=== PATIENT | female | born 1995 | race Caucasian/White ===

== ENCOUNTER 2018-03-30 14:06 | Emergency (ER) | payer BC, OTHER ==
[2018-03-30 14:27] VITALS: TEMP 98.6
[2018-03-30] MEDS ORDERED: SODIUM CHLORIDE 0.9% 1,000 ML IV STA (15:55)
--- NOTE | 2018-03-30 15:56 | ED ---
General Adult HPI - General Chief complaint: Arrhythmia/Palpitations Stated complaint: Palpitations Time Seen by Provider: 03/30/18 15:42 Source: patient, family, RN notes reviewed Mode of arrival: wheelchair Limitations: no limitations - History of Present Illness Initial comments: Patient is a pleasant 22-year-old female presenting to the emergency department palpitations. Onset of symptoms was around 9:30 or 10 this morning. No symptoms lasted around 10 minutes and then resolved. Heart rate was checked at 99. Patient felt it was skipping. Patient also felt that it was beating hard. No history of similar symptoms previously. Patient has not had any symptoms since that time. No chest pain. No dyspnea. Patient is approximately 34 weeks . No vaginal bleeding or pelvic pain. - Related Data Home Medications Medication Instructions Recorded Confirmed Pnv No.95/Ferrous Fum/Folic AC 1 tab PO HS 03/30/18 03/30/18 [ Multivitamin Tablet] Allergies Allergy/AdvReac Type Severity Reaction Status Date / Time No Known Allergies Allergy Verified 03/30/18 15:45 Review of Systems ROS Statement: Those systems with pertinent positive or pertinent negative responses have been documented in the HPI. ROS Other: All systems not noted in ROS Statement are negative. Constitutional: Denies: fever Eyes: Denies: eye pain ENT: Denies: ear pain Respiratory: Denies: cough, dyspnea Cardiovascular: Reports: palpitations. Denies: chest pain Endocrine: Denies: fatigue Gastrointestinal: Denies: abdominal pain, vomiting Genitourinary: Denies: dysuria Musculoskeletal: Denies: back pain Skin: Denies: rash Neurological: Denies: weakness Past Medical History Past Medical History: No Reported History History of Any Multi-Drug Resistant Organisms: None Reported Past Surgical History: No Surgical Hx Reported Past Psychological History: No Psychological Hx Reported Smoking Status: Never smoker Past Alcohol Use History: None Reported Past Drug Use History: None Reported General Exam Limitations: no limitations General appearance: alert, in no apparent distress Head exam: Present: atraumatic Eye exam: Present: normal appearance, PERRL ENT exam: Present: normal oropharynx Neck exam: Present: normal inspection Respiratory exam: Present: normal lung sounds bilaterally Cardiovascular Exam: Present: regular rate, normal rhythm, normal heart sounds Expanded Peripheral pulses: 2+: Radial (R), Radial (L), Dorsalis Pedis (R), Dorsalis Pedis (L) GI/Abdominal exam: Present: soft. Absent: tenderness Extremities exam: Present: normal inspection. Absent: pedal edema, calf tenderness Neurological exam: Present: alert Psychiatric exam: Present: normal affect, normal mood Skin exam: Present: normal color Course Vital Signs 03/30/18 14:25 Temperature 98.6 F Pulse Rate 86 Respiratory 20 Rate Blood Pressure 128/71 O2 Sat by Pulse 97 Oximetry EKG Findings - EKG Comments: EKG Findings:: Normal sinus rhythm at 83. WA 144. QRS 80. QT 358. QTC 420. Normal axis. Normal QRS. No acute ST change. Medical Decision Making - Medical Decision Making Patient reevaluated and resting comfortably in bed. Patient updated on results and need for follow-up as well as need to have upstairs for monitoring. Patient is aware she will need further evaluation including monitor and echo. - Lab Data Result diagrams: 03/30/18 16:11 03/30/18 16:11 Lab Results 03/30/18 03/30/18 03/30/18 Range/Units 16:11 16:11 16:11 WBC 12.4 H (4.0-11.0) k/uL RBC 4.24 (3.80-5.40) m/uL Hgb 13.3 (11.4-16.0) gm/dL Hct 39.9 (34.0-46.0) % MCV 94.0 (80.0-100.0) fL MCH 31.4 (25.0-35.0) pg MCHC 33.4 (31.0-37.0) g/dL RDW 13.6 (11.5-15.5) % Plt Count 175 (150-450) k/uL Neutrophils % 83 % Lymphocytes % 12 % Monocytes % 3 % Eosinophils % 1 % Basophils % 0 % Neutrophils # 10.3 H (1.3-7.7) k/uL Lymphocytes # 1.4 (1.0-4.8) k/uL Monocytes # 0.4 (0-1.0) k/uL Eosinophils # 0.1 (0-0.7) k/uL Basophils # 0.0 (0-0.2) k/uL PT (9.0-12.0) sec INR (<1.2) APTT (22.0-30.0) sec Sodium 139 (137-145) mmol/L Potassium 4.3 (3.5-5.1) mmol/L Chloride 110 H (98-107) mmol/L Carbon Dioxide 22 (22-30) mmol/L Anion Gap 7 mmol/L BUN 7 (7-17) mg/dL Creatinine 0.50 L (0.52-1.04) mg/dL Est GFR (CKD-EPI)AfAm >90 (>60 ml/min/1.73 sqM) Est GFR (CKD-EPI)NonAf >90 (>60 ml/min/1.73 sqM) Glucose 80 (74-99) mg/dL Calcium 8.9 (8.4-10.2) mg/dL Magnesium 1.9 (1.6-2.3) mg/dL Total Bilirubin 0.2 (0.2-1.3) mg/dL AST 29 (14-36) U/L ALT 29 (9-52) U/L Alkaline Phosphatase 149 H (38-126) U/L Total Creatine Kinase 62 (30-135) U/L CK-MB (CK-2) 0.9 (0.0-2.4) ng/mL CK-MB (CK-2) Rel Index 1.5 Troponin I <0.012 (0.000-0.034) ng/mL Total Protein 6.8 (6.3-8.2) g/dL Albumin 3.9 (3.5-5.0) g/dL TSH 1.540 (0.465-4.680) mIU/L Free T4 0.67 L (0.78-2.19) ng/dL Free T3 pg/mL 3.4 (2.8-5.3) pg/ml 03/30/18 Range/Units 16:11 WBC (4.0-11.0) k/uL RBC (3.80-5.40) m/uL Hgb (11.4-16.0) gm/dL Hct (34.0-46.0) % MCV (80.0-100.0) fL MCH (25.0-35.0) pg MCHC (31.0-37.0) g/dL RDW (11.5-15.5) % Plt Count (150-450) k/uL Neutrophils % % Lymphocytes % % Monocytes % % Eosinophils % % Basophils % % Neutrophils # (1.3-7.7) k/uL Lymphocytes # (1.0-4.8) k/uL Monocytes # (0-1.0) k/uL Eosinophils # (0-0.7) k/uL Basophils # (0-0.2) k/uL PT 9.3 (9.0-12.0) sec INR 0.9 (<1.2) APTT 23.9 (22.0-30.0) sec Sodium (137-145) mmol/L Potassium (3.5-5.1) mmol/L Chloride (98-107) mmol/L Carbon Dioxide (22-30) mmol/L Anion Gap mmol/L BUN (7-17) mg/dL Creatinine (0.52-1.04) mg/dL Est GFR (CKD-EPI)AfAm (>60 ml/min/1.73 sqM) Est GFR (CKD-EPI)NonAf (>60 ml/min/1.73 sqM) Glucose (74-99) mg/dL Calcium (8.4-10.2) mg/dL Magnesium (1.6-2.3) mg/dL Total Bilirubin (0.2-1.3) mg/dL AST (14-36) U/L ALT (9-52) U/L Alkaline Phosphatase (38-126) U/L Total Creatine Kinase (30-135) U/L CK-MB (CK-2) (0.0-2.4) ng/mL CK-MB (CK-2) Rel Index Troponin I (0.000-0.034) ng/mL Total Protein (6.3-8.2) g/dL Albumin (3.5-5.0) g/dL TSH (0.465-4.680) mIU/L Free T4 (0.78-2.19) ng/dL Free T3 pg/mL (2.8-5.3) pg/ml Disposition Clinical Impression: Palpitations Disposition: HOME SELF-CARE Condition: Stable Instructions: Palpitations (ED) Additional Instructions: Please follow-up with your CUSTOMER SECURITY CLERK and primary care physician in the next day or 2 for recheck. You will need further evaluation including echo and Holter monitor. Please head upstairs at this time for monitoring. Return for increased heart rate, chest pain, difficult to breathing, worsening or change in symptoms or other concerns. Is patient prescribed a controlled substance at d/c from ED?: No Referrals: Nitza Corral MD [Primary Care Provider] - 1-2 days Time of Disposition: 17:04
[2018-03-30 16:18] LABS: Basophils % (A) 0 %; Eosinophils # (A) 0.1 k/uL (0-0.7); Eosinophils % (A) 1 %; HCT 39.9 % (34.0-46.0); HGB 13.3 gm/dL (11.4-16.0); Lymphocytes # (A) 1.4 k/uL (1.0-4.8); Lymphocytes % (A) 12 %; MCH 31.4 pg (25.0-35.0); MCHC 33.4 g/dL (31.0-37.0); Mean Platelet Volume 6.7; Monocytes # (A) 0.4 k/uL (0-1.0); Monocytes % (A) 3 %; Neutrophils # (A) 10.3 k/uL (1.3-7.7); Neutrophils % (A) 83 %; Platelet Count 175 k/uL (150-450); RBC 4.24 m/uL (3.80-5.40); RDW 13.6 % (11.5-15.5); WBC 12.4 k/uL (4.0-11.0)
[2018-03-30 16:30] LABS: ALT 29 U/L (9-52); AST 29 U/L (14-36); Albumin 3.9 g/dL (3.5-5.0); Alkaline Phosphatase 149 U/L (38-126); Anion Gap 7 mmol/L; Blood Urea Nitrogen 7 mg/dL (7-17); Calcium 8.9 mg/dL (8.4-10.2); Carbon Dioxide 22 mmol/L (22-30); Chloride 110 mmol/L (98-107); Glucose 80 mg/dL (74-99); INR 0.9 (<1.2); Magnesium 1.9 mg/dL (1.6-2.3); Partial Thromboplastin Time 23.9 sec (22.0-30.0); Potassium 4.3 mmol/L (3.5-5.1); Prothrombin Time 9.3 sec (9.0-12.0); Sodium 139 mmol/L (137-145); Total Bilirubin 0.2 mg/dL (0.2-1.3); Total Protein 6.8 g/dL (6.3-8.2)
[2018-03-30 16:40] LABS: Creatine Kinase 62 U/L (30-135)
[2018-03-30 16:47] LABS: T4, Free (Free Thyroxine) 0.67 ng/dL (0.78-2.19)
[2018-03-30 16:51] LABS: Creatine Kinase MB 0.9 ng/mL (0.0-2.4); Troponin I <0.012 ng/mL (0.000-0.034)
[2018-03-30 17:11] VITALS: BP 119/56; PULSE 83; RESP 18
== END 2018-03-30 17:50 | disposition home or self-care (01) ==
LOC: EC 14:06
DX: O99.89 Other specified diseases and conditions complicating pregnancy, childbirth and the puerperium (principal); R00.2 Palpitations; Z3A.34 34 weeks gestation of pregnancy
CPT/HCPCS: 36415; 80053; 82550; 82553; 83735; 84439; 84443; 84481; 84484; 85025; 85610; 85730; 93005; 96360; 99285

== ENCOUNTER 2018-03-30 17:54 | Outpatient (CLI) | payer BC, OTHER ==
[2018-03-30 19:22] VITALS: BP 125/67; PULSE 83; RESP 18; TEMP 96.9
--- NOTE | 2018-04-20 11:42 | P.MSEPDOC ---
Presenting Problems - Arrival Data Date of Arrival on Unit: 03/30/18 Time of Arrival on Unit: 18:00 Mode of Transport: Wheelchair - Complaint OB-Reason for Admission/Chief Complaint: NST Comment: pt received from ER after being assessed for heart palpitations. Pt denies labor complaints Medical History - Information : 1 Para: 0 Term: 0 : 0 Abortions: Spontaneous or Elective: 0 Number of Living Children: 0 - Gestational Age Gestational Age by QIANA (wks/days): 33 Weeks and 6 Days Review of Systems - Review of Systems Constitutional: No problems Breast: No problems ENT: No problems Cardiovascular: No problems Respiratory: No problems Gastrointestinal: No problems Genitourinary: No problems Musculoskeletal: No problems Neurological: No problems Skin: No problems Vital Signs - Temperature Temperature: 96.9 F Temperature Source: Temporal Artery Scan - Pulse Right Sitting Brachial Pulse Rate: 83 Pulse Assessment Method: Automatic Cuff - Respirations Respiratory Rate: 18 Oxygen Delivery Method: Room Air O2 Sat by Pulse Oximetry: 97 - Blood Pressure Right Arm Sitting Blood Pressure: 125/67 Blood Pressure Mean: 86 Blood Pressure Source: Automatic Cuff Medical Screen Scoring (Pre) - Cervical Exam Dilation: Exam Deferred Effacement: Exam Deferred Membranes: Intact - Uterine Contractions Frequency: > 5 minutes apart = 1 Duration: N/A Intensity: N/A - Maternal Vital Signs Maternal Temperature: N/A Maternal Blood Pressure: N/A Signs of Preeclampsia: N/A Maternal Respirations: N/A - Pain Assessment Pain Scale Used: Numeric (1 - 10) Pain Intensity: 0 Pain Management Goal: 3 - Maternal Trauma Maternal Trauma: N/A - Assessment Baseline FHR: 125 Heart Rate - NICHD Category: Category I (Normal) = 0 NST: Reactive Position: N/A Station: N/A - Total Score Total Score (Pre): 1 - Level of Risk Level of Risk: Low (0-5) Physician Notification (Pre) - Physician Notified Physician Notified Date: 03/30/18 Physician Notified Time: 19:15 Physician/Practitioner Notifed:: Dr Mehta Spoke With: Dr Mehta New Order Received: Yes - Notification Comment Comment: discharge home. Call for appt to see in 1-2 days. Disposition - Disposition OB Disposition: Discharge to home Discharge Date: 03/30/18 Discharge Time: 19:15 I agree with the RN Medical Screening Exam: Yes Risk & Benefit of care provided described in d/c instruction: Yes Diagnosis: 33 WEEKS GESTATION OF
== END 2018-03-30 19:15 | disposition home or self-care (01) ==
LOC: FBPOP 17:54
PROVIDERS: ATTEND Obstetrics & Gynecology
DX: O26.893 Other specified pregnancy related conditions, third trimester (principal); R00.2 Palpitations; Z3A.33 33 weeks gestation of pregnancy
CPT/HCPCS: 59025; 99213

== ENCOUNTER 2018-05-18 15:46 | Inpatient (IN) | payer BC, OTHER ==
[2018-05-18] MEDS ORDERED: CARBOPROST TROMETHAMINE 250 MCG/ML 1 ML AMP IM PRN (17:05)
[2018-05-18] MEDS ORDERED: TERBUTALINE 1 MG/ML VIAL SQ PRN (17:05)
[2018-05-18] MEDS ORDERED: LIDOCAINE 0.5% (PF) 5 MG/ML (50 ML SDV) SQ PRN (17:05)
[2018-05-18] MEDS ORDERED: OXYTOCIN 10 UNIT/ML 1 ML VIAL IM PRN (17:05)
[2018-05-18] MEDS ORDERED: METHYLERGONOVINE 0.2 MG/ML 1 ML AMP IM PRN (17:05)
[2018-05-18 18:08] VITALS: BMI 36.8
[2018-05-18] MEDS: OXYTOCIN 20 UNITS/1000 ML NS 1,000 ML IV SCH (18:54)
[2018-05-18] MEDS: LACTATED RINGERS 1,000 ML IV SCH (18:54)
[2018-05-18 18:59] LABS: Basophils % (A) 0 %; Eosinophils # (A) 0.1 k/uL (0-0.7); Eosinophils % (A) 1 %; HCT 38.8 % (34.0-46.0); HGB 13.3 gm/dL (11.4-16.0); Lymphocytes # (A) 1.7 k/uL (1.0-4.8); Lymphocytes % (A) 13 %; MCH 32.4 pg (25.0-35.0); MCHC 34.2 g/dL (31.0-37.0); MCV 94.8 fL (80.0-100.0); Mean Platelet Volume 6.9; Monocytes # (A) 0.5 k/uL (0-1.0); Monocytes % (A) 4 %; Neutrophils # (A) 11.4 k/uL (1.3-7.7); Neutrophils % (A) 82 %; Platelet Count 171 k/uL (150-450); RBC 4.09 m/uL (3.80-5.40); RDW 13.4 % (11.5-15.5); WBC 13.9 k/uL (4.0-11.0)
[2018-05-19] MEDS: LACTATED RINGERS 1,000 ML IV SCH ×3 (03:38→08:01)
[2018-05-19] MEDS: OXYTOCIN 20 UNITS/1000 ML NS 1,000 ML IV SCH (05:22)
--- NOTE | 2018-05-19 07:42 | P.HPOB ---
History of Present Illness H&P Date: 05/19/18 Chief Complaint: Nonreassuring status, postdates This is a 22-year-old white female 1 para 0 EDC 05/12/2018 at 41 weeks gestation. Patient was seen in the office yesterday for her examination, NST was reactive but there was a deceleration into the 90s for approximate 20 seconds. She was subsequently sent to the hospital for further monitoring, where a second deceleration was appreciated. For that reason, she was admitted and monitored through the night. Oxytocin was started at 0500. heart rate has been reassuring throughout the night. Past medical history is significant for migraine headaches. Past surgical history is negative. Current medications vitamins daily. ALLERGIES none known. Family history is significant for heart issues and kidney stones along with gallbladder problems. Social history patient is single, she has never been a smoker, she denies alcohol or drug use. Obstetric history blood type is O+, rubella immune. VDRL testing, urine culture , hepatitis B surface antigen, HIV testing, gonorrhea and chlamydia cultures all negative. One-hour Glucola 86. Group B strep cultures negative. On exam this is a pleasant young female who is 5 foot 5 inches, 221 pounds, blood pressure 139/63 on admission, vital signs otherwise stable. The general physical exam is within normal limits. Cervix at time of this dictation is 6-7 cm dilated, 100% effaced, -1 station, vertex presentation. Artificial amniorrhexis reveals clear fluid. heart rate is in the 140s with frequent accelerations consistent with reactive NST. Impression: 41 week intrauterine , reassuring status at this time , active labor. Plan: Epidural has been requested and will be placed shortly, anesthesia aware. Continue oxytocin augmentation per hospital protocol. Continue close maternal and surveillance. Anticipate normal spontaneous vaginal delivery. Review of Systems Negative except as in HPI Past Medical History Past Medical History: No Reported History Additional Past Medical History / Comment(s): migraines History of Any Multi-Drug Resistant Organisms: None Reported Past Surgical History: No Surgical Hx Reported Past Anesthesia/Blood Transfusion Reactions: No Reported Reaction Additional Past Anesthesia/Blood Transfusion Reaction / Comment(s): no hx Past Psychological History: No Psychological Hx Reported Smoking Status: Never smoker Past Alcohol Use History: None Reported Past Drug Use History: None Reported - Past Family History Mother Additional Family Medical History / Comment(s): MVA at 22 yo. is in [place] w brain injury Father Family Medical History: Coronary Artery Disease (CAD), Hypertension Medications and Allergies Home Medications Medication Instructions Recorded Confirmed Type Pnv No.95/Ferrous Fum/Folic AC 1 tab PO HS 03/30/18 05/18/18 History [ Multivitamin Tablet] Allergies Allergy/AdvReac Type Severity Reaction Status Date / Time No Known Allergies Allergy Verified 05/18/18 15:59 Exam Vital Signs Temp Pulse Resp BP Pulse Ox 05/19/18 00:00 97.7 F 85 16 139/65 98 05/18/18 20:00 97.7 F 91 16 139/63 98 05/18/18 17:00 97.1 F L 96 17 123/61 98 Intake and Output 05/18/18 05/19/18 05/19/18 22:59 06:59 14:59 Output Total 600 Balance -600 Output: Urine 600 Other: # Voids 1 1 Weight 100.244 kg Please see dictation under HPI Results Result Diagrams: 05/18/18 18:37 Abnormal Lab Results - Last 24 Hours (Table) 05/18/18 Range/Units 18:37 WBC 13.9 H (4.0-11.0) k/uL Neutrophils # 11.4 H (1.3-7.7) k/uL Assessment and Plan Assessment: 41 week intrauterine , now in active labor. All signs currently reassuring. Plan: Continue close maternal and surveillance. Continue oxytocin augmentation per hospital protocol. Epidural is being placed at this time. Anticipate normal spontaneous vaginal delivery. Time with Patient: Less than 30
[2018-05-19] MEDS ORDERED: ROPIVACAINE 100 MG, fentaNYL (PF) 200 MCG in SODIUM CHLORIDE 0.9% 76 ML EPIDURAL ONE (08:03)
[2018-05-19] MEDS ORDERED: diphenhydrAMINE ELIXIR 25 MG/10 ML CUP PO PRN (11:42)
[2018-05-19] MEDS ORDERED: BENZOCAINE/MENTHOL SPRAY 1 GM/SPRAY AEROSOL TOPICAL PRN (11:42)
[2018-05-19] MEDS ORDERED: SIMETHICONE 80 MG CHEWABLE PO PRN (11:42)
[2018-05-19] MEDS ORDERED: HYDROCORTISONE 2.5% RECTAL CREAM 30 GM TUBE RECTAL PRN (11:42)
[2018-05-19] MEDS ORDERED: WITCH HAZEL 1 EACH MED..PAD TOPICAL PRN (11:42)
[2018-05-19] MEDS ORDERED: diphenhydrAMINE 25 MG CAP PO PRN (11:42)
[2018-05-19] MEDS ORDERED: diphenhydrAMINE 50 MG/ML 1 ML VIAL IVP PRN ×2 (11:42)
[2018-05-19] MEDS ORDERED: diphenhydrAMINE 50 MG CAP PO PRN (11:42)
[2018-05-19] MEDS ORDERED: HYDROcodone/APAP 5-325MG 1 EACH TAB PO PRN (11:42)
[2018-05-19] MEDS ORDERED: ZOLPIDEM 5 MG TAB PO PRN (11:42)
[2018-05-19] MEDS ORDERED: LANOLIN CREAM 5 GM TUBE TOPICAL PRN (11:42)
[2018-05-19] MEDS ORDERED: ACETAMINOPHEN TAB 325 MG TAB PO PRN (11:42)
--- NOTE | 2018-05-19 11:42 | P.PROBDLV ---
Vaginal Delivery Note - . Vaginal Delivery Note: This is a 22-year-old white female 1 para 0 EDC 05/12/2018 at 41 weeks gestation. Patient presented with several decelerations noted on nonstress testing. was unremarkable, group B strep cultures negative , blood type O positive, rubella status immune. Please see my dictated history and physical for details. Artificial amniorrhexis revealed clear fluid. Oxytocin was started and titrated per hospital protocol. Patient became uncomfortable and requested epidural, this was placed without issue. She progressed well through the first stage of labor and became completely dilated at 1022 hrs. Perineal body was prepped and draped at that time and pushing began. Excellent progress was made, and ultimately the infant's head delivered occiput anterior. He restituted accordingly. There was no nuchal cord noted. The right or anterior shoulder was delivered from underneath the pubic symphysis at which time the oropharynx, nasopharynx, and external nares were bulb suctioned. Patient was officially delivered of a liveborn male at 1123 hours. Umbilical cord was doubly clamped and ligated, he was handed to waiting nurses for evaluation where scores of 9 and 9 at one and 5 minutes respectively were given. Placenta was delivered spontaneously, it was inspected and noted to be intact with trivascular cord at 1127 hours. At this time the perineal body was redraped. Inspection of the cervix, vagina, perineum, periurethral, and perirectal areas reveals a small midline second- degree laceration. This was injected with 1% lidocaine solution and repaired in the usual fashion using 3-0 Vicryl suture. Excellent reapproximation was noted. Fundus is firm and in the midline, symmetric and 18 week size upon completion of delivery. Estimated blood loss 300 mL's. All sponge needle and enhancement counts are correct at the end of the procedure. Infant weighs 4010 g or 8 lbs. 13 oz. They are requesting circumcision further son.
[2018-05-19] MEDS: IBUPROFEN 600 MG TAB PO PRN ×2 (12:28→22:10)
[2018-05-19 18:04] VITALS: RESP 18
[2018-05-19] MEDS: SENNOSIDES-DOCUSATE SODIUM 1 EACH TAB PO SCH (21:37)
[2018-05-20] MEDS: IBUPROFEN 600 MG TAB PO PRN (07:43)
[2018-05-20] MEDS: SENNOSIDES-DOCUSATE SODIUM 1 EACH TAB PO SCH (07:43)
--- NOTE | 2018-05-20 08:12 | P.DS ---
Providers Date of admission: 05/18/18 16:58 Expected date of discharge: 05/20/18 Attending physician: Mary Butler Primary care physician: Stated None Hospital Course: This is a 22-year-old white female 1 para 0 EDC 05/12/2018 at 40-6/7 weeks' gestation. Patient presented with nonreassuring heart tones for induction. A spontaneous deceleration was noted in the office at the time of NST. A second deceleration was noted at the hospital and the decision was therefore made to admit the patient. Please see my dictated history and physical for details. Official amniorrhexis revealed clear fluid. Epidural was placed per her request. Patient went on to deliver a liveborn male infant with scores of 9 and 9 at one and 5 minutes respectively. Infant weight 8 lbs. 13 oz. or 4010 g. There was a small second-degree perineal laceration that was easily repaired, and an estimated blood loss of 300 mL's. Please see dictated delivery note for details. This morning the patient is doing well. She is voiding, ambulate and passing flatus without difficulty. Vital signs are stable and she is afebrile. [place] is doing well, circumcision has been performed. Breast-feeding is going well. Lochia rubra is minimal to moderate. Patient's pain is well- controlled. She is being discharged home in very good condition. She will follow-up in the office with me in 6 weeks. I have reminded her no intercourse, tampons or douching. She is contemplating options for contraception and we will discuss this further in the office. She will call with any fevers shakes or chills, foul smelling or copious lochia, with the passage of large blood clots, with any pain not alleviated by [id number] products, or indeed with any concerns. A prescription for breast pump has been provided per her request. Continue taking vitamins daily. Patient Condition at Discharge: Good Plan - Discharge Summary New Discharge Prescriptions: No Action Pnv No.95/Ferrous Fum/Folic AC [ Multivitamin Tablet] 1 tab PO HS Discharge Medication List Pnv No.95/Ferrous Fum/Folic AC [ Multivitamin Tablet] 1 tab PO HS [History] Follow up Appointment(s)/Referral(s): Mary Butler MD [STAFF PHYSICIAN] - 6 Weeks Discharge Disposition: HOME SELF-CARE
[2018-05-20 08:15] VITALS: BP 122/64; PULSE 82; TEMP 97.5
== END 2018-05-20 14:03 | disposition home or self-care (01) | DRG 775 ==
LOC: FBPOP 15:46 → 4FBP 16:00 → UNDOADMOB 16:58 → UNDODISOB 05-20 14:03
PROVIDERS: ADMIT Obstetrics & Gynecology; ATTEND Obstetrics & Gynecology
PROC: 10E0XZZ Delivery of Products of Conception, External Approach (ICD-10-PCS; principal; 2018-05-19)
PROC: 0KQM0ZZ Repair Perineum Muscle, Open Approach (ICD-10-PCS; 2018-05-19)
PROC: 3E033VJ Introduction of Other Hormone into Peripheral Vein, Percutaneous Approach (ICD-10-PCS; 2018-05-19)
PROC: 10907ZC Drainage of Amniotic Fluid, Therapeutic from Products of Conception, Via Natural or Artificial Opening (ICD-10-PCS; 2018-05-19)
PROC: 00HU33Z Insertion of Infusion Device into Spinal Canal, Percutaneous Approach (ICD-10-PCS; 2018-05-19)
PROC: 3E0R3BZ Introduction of Anesthetic Agent into Spinal Canal, Percutaneous Approach (ICD-10-PCS; 2018-05-19)
DX: O48.0 Post-term pregnancy (principal); O70.1 Second degree perineal laceration during delivery; Z37.0 Single live birth; O76 Abnormality in fetal heart rate and rhythm complicating labor and delivery; Z3A.41 41 weeks gestation of pregnancy; Z79.899 Other long term (current) drug therapy
CPT/HCPCS: 59025; 85025; 86850; 86900; 86901

== ENCOUNTER 2018-07-05 02:05 | Emergency (ER) | payer BC, OTHER ==
[2018-07-05 02:13] VITALS: BP 133/78; PULSE 106; RESP 18; TEMP 99.5
[2018-07-05] MEDS ORDERED: AMOXIC-POT CLAV 875MG STARTER 2 EACH TABLET PO STA (02:31)
--- NOTE | 2018-07-05 02:43 | ED ---
Fever HPI - General Chief Complaint: Fever Stated Complaint: Fever Time Seen by Provider: 07/05/18 02:24 Source: patient Mode of arrival: ambulatory Limitations: no limitations - History of Present Illness Initial Comments: Patient is a 22-year-old female who is currently 7 weeks , she is currently breast-feeding via breast pump and bottle feeding. Patient was recently evaluated by the nurse practitioner her OB office and diagnosed with right breast mastitis. Patient completed her course of a dicloxacillin on Friday of the previous week. Patient reports that today she began having pain in her left breast and fever. She was concerned that she may be developing mastitis in her left breast that she came to the ER, she reports that upon providing a urine sample in the ER she noted that her breast has become very red and worsening tenderness. denies any additional complaints including any abdominal pain, nausea, vomiting, chest pain, shortness breath, dysuria or any change in bowel or bladder habits. - Related Data Home Medications Medication Instructions Recorded Confirmed Pnv No.95/Ferrous Fum/Folic AC 1 tab PO HS 03/30/18 05/18/18 [ Multivitamin Tablet] Previous Rx's Medication Instructions Recorded Amoxicillin/Potassium Clav 1 tab PO Q12HR #20 tab 07/05/18 [Augmentin 875-125 Tablet] Allergies Allergy/AdvReac Type Severity Reaction Status Date / Time No Known Allergies Allergy Verified 07/05/18 02:13 Review of Systems ROS Statement: Those systems with pertinent positive or pertinent negative responses have been documented in the HPI. ROS Other: All systems not noted in ROS Statement are negative. Past Medical History Past Medical History: No Reported History Additional Past Medical History / Comment(s): migraines History of Any Multi-Drug Resistant Organisms: None Reported Past Surgical History: No Surgical Hx Reported Past Anesthesia/Blood Transfusion Reactions: No Reported Reaction Additional Past Anesthesia/Blood Transfusion Reaction / Comment(s): no hx Past Psychological History: No Psychological Hx Reported Smoking Status: Never smoker Past Alcohol Use History: None Reported Past Drug Use History: None Reported - Past Family History Mother Additional Family Medical History / Comment(s): MVA at 22 yo. is in [place] w brain injury Father Family Medical History: Coronary Artery Disease (CAD), Hypertension General Exam - General Exam Comments Initial Comments: Physical Exam GENERAL: Patient is well-developed and well-nourished. Patient is nontoxic and well- hydrated and is in no distress. HENT: Normocephalic, Atraumatic. EYES: PERRL, EOMI PULMONARY: Unlabored respirations. No audible rales rhonchi or wheezing was noted. CARDIOVASCULAR: There is a regular rate and rhythm without any murmurs gallops or rubs. ABDOMEN: Soft and nontender with normal bowel sounds. SKIN: Skin is clear with no lesions or rashes and otherwise unremarkable. Left breast erythematous and tender to palpation, no cracking or purulence noted at the nipple : Deferred NEUROLOGIC: Patient is alert and oriented x3. Moving all extremities spontaneously MUSCULOSKELETAL: Normal extremities with adequate strength and full range of motion. No lower extremity swelling or edema. No calf tenderness. PSYCHIATRIC: Normal psychiatric evaluation. Limitations: no limitations Limitations: no limitations Course Vital Signs 07/05/18 02:08 Temperature 99.5 F Pulse Rate 106 H Respiratory 18 Rate Blood Pressure 133/78 O2 Sat by Pulse 98 Oximetry Medical Decision Making - Medical Decision Making The patient was seen and evaluated, history was obtained from the patient Patient with recent right breast mastitis presenting today with fever and left breast mastitis, she did take Motrin prior to arrival fever has resolved prior to arrival Physical exam is consistent with a left breast mastitis Patient was recently prescribed dicloxacillin, today I will prescribe her Augmentin for mastitis. First dose of Augmentin to be administered here in the emergency department. Appropriate dosing of Tylenol Motrin were discussed with the patient. All questions pertaining to care were answered to the best my ability. Return parameters were discussed. The need for follow-up with her OB was discussed. Patient was discharged home in stable condition. Disposition Clinical Impression: Mastitis Disposition: HOME SELF-CARE Prescriptions: Amoxicillin/Potassium Clav [Augmentin 875-125 Tablet] 1 tab PO Q12HR #20 tab Is patient prescribed a controlled substance at d/c from ED?: No Referrals: Nitza Corral MD [Primary Care Provider] - 1-2 days
== END 2018-07-05 02:57 | disposition home or self-care (01) ==
LOC: EC 02:05
DX: N61.0 Mastitis without abscess (principal)
CPT/HCPCS: 99283

== ENCOUNTER 2019-06-27 15:38 | Emergency (ER) | payer BC, OTHER ==
[2019-06-27] MEDS ORDERED: SODIUM CHLORIDE 0.9% 1,000 ML IV STA ×2 (16:06)
[2019-06-27] MEDS ORDERED: ONDANSETRON 4 MG/2 ML VIAL IVP STA (16:06)
[2019-06-27] MEDS ORDERED: KETOROLAC 30 MG/ML 1 ML VIAL IVP STA (16:06)
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
[2019-06-27 16:14] VITALS: RESP 16
[2019-06-27 16:34] LABS: ALT 34 U/L (9-52); AST 24 U/L (14-36); African American GFR (CKD) >90 (>60 ml/min/1.73 sqM); Albumin 4.8 g/dL (3.5-5.0); Alkaline Phosphatase 103 U/L (38-126); Amylase 51 U/L (30-110); Anion Gap 12 mmol/L; Basophils # (A) 0.1 k/uL (0-0.2); Basophils % (A) 0 %; Blood Urea Nitrogen 13 mg/dL (7-17); Calcium 8.8 mg/dL (8.4-10.2); Carbon Dioxide 24 mmol/L (22-30); Chloride 105 mmol/L (98-107); Eosinophils % (A) 0 %; Glucose 113 mg/dL (74-99); HCT 43.3 % (34.0-46.0); HGB 14.7 gm/dL (11.4-16.0); Lymphocytes # (A) 0.5 k/uL (1.0-4.8); Lymphocytes % (A) 4 %; MCH 31.2 pg (25.0-35.0); MCV 91.6 fL (80.0-100.0); Mean Platelet Volume 5.6; Monocytes # (A) 0.5 k/uL (0-1.0); Monocytes % (A) 4 %; Neutrophils # (A) 12.2 k/uL (1.3-7.7); Neutrophils % (A) 92 %; Platelet Count 221 k/uL (150-450); Potassium 3.6 mmol/L (3.5-5.1); RBC 4.72 m/uL (3.80-5.40); RDW 12.3 % (11.5-15.5); Sodium 141 mmol/L (137-145); Total Bilirubin 0.6 mg/dL (0.2-1.3); Total Protein 8.3 g/dL (6.3-8.2); WBC 13.3 k/uL (3.8-10.6)
--- NOTE | 2019-06-27 17:36 | XR ---
EXAMINATION TYPE: XR chest 2V DATE OF EXAM: 06/27/2019 COMPARISON: NONE HISTORY: Nausea. Vomiting. TECHNIQUE: Frontal and lateral views of the chest are obtained. FINDINGS: Heart and mediastinum are normal. Lungs are clear. Diaphragm is normal. Bony thorax appear s normal. IMPRESSION: Normal chest.
[2019-06-27] MEDS ORDERED: ACETAMINOPHEN TAB 500 MG TAB PO STA (18:05)
[2019-06-27] MEDS ORDERED: SODIUM CHLORIDE 0.9% 1,000 ML IV ONE (18:05)
[2019-06-27 18:09] LABS: Appearance,Urine Clear (Clear); Bacteria,Urine Rare /hpf; Bilirubin,Urine Negative (Negative); Blood,Urine Trace (Negative); Color,Urine Yellow; Glucose,Urine (UA) Negative (Negative); Ketones,Urine Negative (Negative); Leukocyte Esterase,Urine Moderate (Negative); Mucus,Urine Few /hpf; Nitrite,Urine Negative (Negative); Protein,Urine 1+ (Negative); RBC,Urine 7 /hpf (0-5); Specific Gravity,Urine 1.037 (1.001-1.035); Squamous Epithelial Cell,Urine 5 /hpf (0-4); Urobilinogen,Urine <2.0 mg/dL (<2.0); WBC,Urine 7 /hpf (0-5)
[2019-06-27 18:12] VITALS: TEMP 98
[2019-06-27] MEDS ORDERED: diphenhydrAMINE 50 MG/ML 1 ML VIAL IVP STA (18:19)
[2019-06-27] MEDS ORDERED: METOCLOPRAMIDE 5 MG/ML 2 ML VIAL IVP STA (18:19)
[2019-06-27] MEDS ORDERED: ORPHENADRINE 30 MG/ML 2 ML VIAL IVP STA (18:20)
[2019-06-27 19:08] VITALS: BP 99/42; PULSE 90
== END 2019-06-27 19:09 | disposition home or self-care (01) ==
LOC: EC 15:38
DX: A08.4 Viral intestinal infection, unspecified (principal); R51 Headache
CPT/HCPCS: 36415; 80053; 82150; 83605; 83690; 85025; 81001; 84703; 87040; 87502; 71046; 99284; 96374; 96375 ×4; 96361 ×3; J1200; J2360; J2765; J2405; J1885

== ENCOUNTER → 2020-05-02 | Outpatient (CLI) | payer OTHER ==
--- NOTE | 2020-05-08 14:11 | HM ---
HOLTER MONITOR REPORT HOLTER MONITOR: Patient was monitored for 24 hours. CLINICAL INFORMATION: Baseline rhythm is a sinus mechanism with normal conduction, the average rate 76 beats per minute, minimum 55, maximum 118 beats per minute. Ventricular ectopic activity was present with one single PVC. Supraventricular ectopic activity was present with one single PAC. Symptoms of palpitation and lightheadedness did not correlate with any dysrhythmia. CONCLUSION: 1. Baseline rhythm is sinus mechanism. 2. Rare ventricular ectopic activity. 3. Rare supraventricular ectopic activity. 4. Symptoms did not correlate with any dysrhythmia. MMODL / IJN: [id number] /
== END | disposition home or self-care (01) ==
LOC: RADECHMAIN 12:08
PROVIDERS: ATTEND Family Medicine
DX: I49.9 Cardiac arrhythmia, unspecified (principal)
CPT/HCPCS: 93225; 93226

== ENCOUNTER 2020-11-30 08:52 | Day surgery (SDC) | payer OTHER ==
[2020-11-24 12:20] VITALS: BMI 31.3
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
[~2020-11-30 08:52] MED LIST: ACETAMINOPHEN TAB 500 MG TAB PO PRN; DEXAMETHASONE SOD PHOSPHATE 4 MG/ML 1 ML VIAL IV ONE; GABAPENTIN 300 MG CAP PO PRN; HEPARIN SODIUM,PORCINE/PF 5,000 UNIT/0.5 ML SYRINGE SQ PRN; LACTATED RINGERS 1,000 ML IV SCH; MELOXICAM 7.5 MG TAB PO PRN; ONDANSETRON 4 MG/2 ML VIAL IVP ONE; SCOPOLAMINE 1.5MG/72HR PATCH TRANSDERM SCH
[2020-11-30 10:18] LABS: Basophils % (A) 0 %; Eosinophils # (A) 0.1 k/uL (0-0.7); Eosinophils % (A) 1 %; HCT 41.6 % (34.0-46.0); HGB 14.5 gm/dL (11.4-16.0); Lymphocytes # (A) 1.5 k/uL (1.0-4.8); Lymphocytes % (A) 19 %; MCH 31.2 pg (25.0-35.0); MCHC 34.8 g/dL (31.0-37.0); MCV 89.5 fL (80.0-100.0); Mean Platelet Volume 6.6; Monocytes # (A) 0.3 k/uL (0-1.0); Monocytes % (A) 4 %; Neutrophils # (A) 5.9 k/uL (1.3-7.7); Neutrophils % (A) 75 %; Platelet Count 235 k/uL (150-450); RBC 4.64 m/uL (3.80-5.40); RDW 12.8 % (11.5-15.5); WBC 7.9 k/uL (3.8-10.6)
[2020-11-30] MEDS ORDERED: MIDAZOLAM 2 MG/2 ML VIAL IVP ONE (10:19)
[2020-11-30] MEDS ORDERED: fentaNYL (PF) 50 MCG/ML 2 ML AMP IVP ONE (10:20)
[2020-11-30 10:27] LABS: ALT 19 U/L (4-34); AST 27 U/L (14-36); African American GFR (CKD) >90 (>60 ml/min/1.73 sqM); Albumin 5.1 g/dL (3.5-5.0); Alkaline Phosphatase 100 U/L (38-126); Anion Gap 10 mmol/L; Blood Urea Nitrogen 11 mg/dL (7-17); Calcium 9.7 mg/dL (8.4-10.2); Carbon Dioxide 26 mmol/L (22-30); Chloride 107 mmol/L (98-107); Glucose 100 mg/dL (74-99); Non-African American GFR(CKD) >90 (>60 ml/min/1.73 sqM); Potassium 3.9 mmol/L (3.5-5.1); Sodium 143 mmol/L (137-145); Total Bilirubin 0.5 mg/dL (0.2-1.3); Total Protein 8.6 g/dL (6.3-8.2)
[2020-11-30] MEDS ORDERED: GLYCOPYRROLATE 0.2 MG/ML 2 ML VIAL ONE (10:51)
[2020-11-30] MEDS ORDERED: LIDOCAINE 1% INJ 10MG/ML (20 ML MDV) ONE (10:51)
[2020-11-30] MEDS ORDERED: DEXAMETHASONE SOD PHOSPHATE 4 MG/ML 1 ML VIAL ONE (10:51)
[2020-11-30] MEDS ORDERED: NEOSTIGMINE 1 MG/ML 10 ML VIAL ONE (10:51)
[2020-11-30] MEDS ORDERED: fentaNYL (PF) 50 MCG/ML 2 ML AMP ONE (10:51)
[2020-11-30] MEDS ORDERED: ROCURONIUM 10 MG/ML (5 ML VIAL) IV ONE (10:51)
[2020-11-30] MEDS ORDERED: diphenhydrAMINE 50 MG/ML 1 ML VIAL ONE (10:51)
[2020-11-30] MEDS ORDERED: ROPIVACAINE 5 MG/ML 30 ML VIAL ONE (10:51)
[2020-11-30] MEDS ORDERED: PROPOFOL 10 MG/ML 20 ML VIAL IV ONE (10:51)
[2020-11-30] MEDS ORDERED: MIDAZOLAM 2 MG/2 ML VIAL ONE (10:51)
[2020-11-30] MEDS ORDERED: BUPIVACAINE (PF) 0.25% 30 ML VIAL SQ ONE (11:18)
[2020-11-30] MEDS ORDERED: SIMETHICONE 80 MG CHEWABLE PO PRN (12:29)
--- NOTE | 2020-11-30 12:32 | P.OP ---
Date of Procedure: 11/30/20 Description of Procedure: SURGEON: MARY SERVIN MD PREOPERATIVE DIAGNOSES: 1. Initial incarcerated umbilical hernia POSTOPERATIVE DIAGNOSES: 1. Initial incarcerated umbilical hernia OPERATION: 1. Robotic-assisted da Kvng Xi laparoscopic repair of initial incarcerated umbilical hernia with mesh, ventralight ST mesh 11.4 cm Anesthesia: GETA, regional, local Estimated Blood Loss (ml): 5 Pathology: 1. Incarcerated umbilical hernia defect COMPLICATIONS: None. Operative Findings: 1. Umbilical hernia defect 2 cm 2. Fascia repaired using #1 V-lock suture INDICATIONS: The patient is a 24-year-old male who presents with a personal history of symptomatic umbilical hernia. Surgical intervention with laparoscopic versus robotic and open techniques were reviewed. Placement of mesh was also reviewed. Benefits and risks were thoroughly described. Informed consent was obtained. DESCRIPTION OF PROCEDURE: The patient was brought into the operating room and laid in supine position. After general induction, the abdomen had been prepped and draped in standard sterile fashion. Ioban draping was also placed. Prior to incision, a timeout protocol was confirmed with surgical team regarding the patient's name including procedures to be performed. The robot was primed prior to the procedure. A field block using local anesthetic was placed along hernia site including the proposed port sites. Initial incision was made with an #11 blade along the left upper quadrant. A 0 degree 5 mm laparoscopic trocar entry was performed and insufflated. Three 8 mm ports were placed along the left lateral abdominal wall under direct localization after exchanging the 5-mm for an 8 mm port. Placements of the ports were 15 cm from the target anatomy and 10 cm apart. An accessory 12 mm port was placed at the right upper quadrant for exchange of mesh including sutures. The [employer] robot was previously primed, prepped and draped then docked from the right side of the patient onto the left side of the patient. I then sat at the robot [employer] Xi console where working arms of the robot including Bovie cautery connected to robotic scissors, needle freight delivery driver, and graspers placed by the orthopaedic physician assistant. Incarcerated omental contents were found along the upper midline defect i ncluding umbilicus. The defects were reduced with preperitoneal fat including the falciform ligament at the upper midline defect. Fascial defect was found: umbilical hernia defect 2 cm with incarcerated contents. The incarcerated contents were reduced as the peritoneal fat was cleaned from the abdominal wall. Next, hemostasis was checked with cautery. The hernia defects were oversewn using #1 nonabsorbable V-lock suture for each defect separately with fascial imbrication x 2. Next, ventralight ST mesh 11.4 cm was placed with the rough side towards the abdominal wall as to cover the umbilical defect. 2-0 VLOC 9 inch sutures were used to fixate the mesh. A final endoscopic imaging was obtained. All instruments and pneumoperitoneum were evacuated from the abdominal cavity. The da Kvng Xi robot was undocked from the patient. I re-scrubbed into the case for closure of incisions. The fascia of the 12-mm port was probed and less than 8-mm in size. The incisions were reapproximated using 4-0 Monocryl in an interrupted subcuticular fashion. Liquid glue was applied to the skin after cleansing the skin with normal saline and dilute hydrogen peroxide. An abdominal binder was placed. An umbilical dressing was placed prior. At the end of the procedure, needle, sponge, and instrument count had been verified correct by surgical appliance fitter. The patient was taken to the posta nesthesia care unit in stable condition. Plan - Discharge Summary Discharge Rx Participant: Yes New Discharge Prescriptions: New Simethicone [Gas-X] 125 mg PO AC-TID PRN #20 capsule PRN Reason: Pain Ibuprofen [Motrin] 600 mg PO Q8HR PRN #30 tab PRN Reason: Pain Acetaminophen Tab [Tylenol Tab] 1,000 mg PO Q6HR PRN #30 tablet PRN Reason: Pain Discontinued Acetaminophen [Tylenol] 325 mg PO Q4H Discharge Medication List Acetaminophen Tab [Tylenol Tab] 1,000 mg PO Q6HR PRN #30 tablet 11/30/20 [Rx] Ibuprofen [Motrin] 600 mg PO Q8HR PRN #30 tab 11/30/20 [Rx] Simethicone [Gas-X] 125 mg PO AC-TID PRN #20 capsule 11/30/20 [Rx] Follow up Appointment(s)/Referral(s): Mary Servin MD [STAFF PHYSICIAN] - 12/05/20 Patient Instructions/Handouts: *[facility] - Managing Your Pain After Surgery Without Opioids, Laparoscopic Herniorrhaphy (IP), Umbilical Hernia (DC) Activity/Diet/Wound Care/Special Instructions: DO NOT REMOVE UMBILICAL DRESSING. Using antibacterial soap. No lifting over 4 pounds 4 weeks, December 30December shower. No bathtub soaks for 2 weeks, December 14 Wear abdominal binder daily for comfort except for showering. Use ice along incisions for today to prevent swelling. Discharge Disposition: HOME SELF-CARE
[2020-11-30 12:40] VITALS: TEMP 98.3
[2020-11-30] MEDS: HYDROmorphone 0.5 MG/0.5 ML SYRINGE IVP PRN ×2 (12:50→13:03)
[2020-11-30] MEDS ORDERED: KETOROLAC 15 MG/ML 1 ML VIAL IVP ONE (12:52)
[2020-11-30 12:59] VITALS: RESP 16
--- NOTE | 2020-11-30 13:03 | P.ANPRN ---
Procedure Note - Anesthesia - Nerve Block Performed Bilateral Rectus Abdominis Single Time Out Performed: Yes (1018) Date of Procedure: 11/30/20 Procedure Start Time: 10: Procedure Stop Time: : Location of Patient: PreOp Indication: Acute Post-Operative Pain, Requested by Surgeon Specifically requested for management of pain by DrLinnea: Mary Servin Sedation Type: Sedate with meaningful contact maintained Preparation: Sterile Prep Position: Supine Catheter: None Needle Types: Pajunk Needle Gauge: 21 Ultrasound used to visualize needle placement: Yes Ultrasound used to observe medication spread: Yes Injectate: 0.5% Ropivacaine (see comment for volume) (15cc each side + 5cc NaCl each side) Blood Aspirated: No Pain Paresthesia on Injection Noted: No Resistance on Injection: Normal Image Stored and Saved: Yes Events: Uneventful and Well Tolerated
[2020-11-30] MEDS ORDERED: ACETAMINOPHEN TAB 500 MG TAB ONE (13:54)
[2020-11-30] MEDS ORDERED: ACETAMINOPHEN TAB 500 MG TAB PO ONE (13:57)
[2020-11-30 14:59] VITALS: BP 111/73; PULSE 97
== END 2020-11-30 15:06 | disposition home or self-care (01) ==
LOC: OR 08:52
PROVIDERS: ATTEND Surgery Plastic and Reconstructive Surgery
DX: K42.0 Umbilical hernia with obstruction, without gangrene (principal); L50.9 Urticaria, unspecified; G43.909 Migraine, unspecified, not intractable, without status migrainosus; F41.9 Anxiety disorder, unspecified; Z79.899 Other long term (current) drug therapy; Z84.89 Family history of other specified conditions; Z82.49 Family history of ischemic heart disease and other diseases of the circulatory system
CPT/HCPCS: 49653; S2900; 64488; 80053; 81025; 85025; 88302